=== PATIENT | female | born 1990 | race African-American/Black ===

== ENCOUNTER 2017-08-13 10:29 | Emergency (ER) | payer MEDICAID ==
[~2017-08-13] VITALS: Ht 165.1 cm; Wt 58.1 kg
[~2017-08-13 10:29] MED LIST: PREN-88 PO
[2017-08-13] MEDS ORDERED: IBUPROFEN 600MG TABLET PO ONE (12:30)
[2017-08-13] MEDS ORDERED: METHYLPREDNISOLONE SOD SUCC 125 MG/2 ML VIAL IM ONE (12:30)
[2017-08-13] MEDS ORDERED: PENICILLIN V POTASSIUM 250MG TABLET PO SCH (13:45)
[2017-08-13 13:59] VITALS: BP 112/63
== END 2017-08-13 13:59 | disposition home or self-care (01) ==
LOC: ER 10:43
DX: J02.9 Acute pharyngitis, unspecified (principal); J45.909 Unspecified asthma, uncomplicated
CPT/HCPCS: 81025; 87070; 87430; 96372; 99284; J2930